=== PATIENT | male | born 1930 | race Caucasian/White ===

== ENCOUNTER → 2018-06-19 | Day surgery (SDC) | payer MEDICARE, OTHER ==
[2018-05-30 15:54] LABS: BASOPHILS % 0.6 % (0.0-1.0); EOSINOPHILS # (AUTO) 0.1 (0.0-0.4); EOSINOPHILS % 2.8 % (0.0-6.0); HEMATOCRIT 36.5 % (38.2-49.6); HEMOGLOBIN 11.9 g/dL (14.0-18.0); LYMPHOCYTES # (AUTO) 0.8 (1.0-3.2); LYMPHOCYTES % 16.1 % (18.0-39.1); MEAN CORPUSCULAR HEMOGLOBIN 30.9 pg (28-32); MEAN CORPUSCULAR HGB CONC 32.6 g/dL (31-35); MEAN CORPUSCULAR VOLUME 94.8 fL (81-99); MONOCYTES # (AUTO) 0.7 (0.2-0.8); MONOCYTES % 14.2 % (4.4-11.3); NEUTROPHILS # (AUTO) 3.1 (2.1-6.9); NEUTROPHILS % 66.1 % (38.7-80.0); PLATELET COUNT 209 x10e3/uL (140-360); RED BLOOD COUNT 3.85 x10e6/uL (4.3-5.7); RED CELL DISTRIBUTION WIDTH 15.5 % (11.7-14.4)
[2018-05-30 16:07] LABS: ANION GAP 14.7 mmol/L (8-16); CALCIUM 9.7 mg/dL (8.4-10.2); CREATININE, SERUM 1.19 mg/dL (0.72-1.25); POTASSIUM 4.7 mmol/L (3.5-5.1)
--- NOTE | 2018-05-30 16:19 | Diagnostic Imaging Report ---
PROCEDURE: X-RAY CHEST, TWO VIEWS COMPARISON: None. INDICATIONS: PREOP FOR FOOT FINDINGS: LUNGS: Diffusely hyperinflated without mass or infiltrate. No interstitial edema. PLEURA: No effusions or pneumothorax. 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 BONES \T\ SOFT TISSUES: No acute findings. There is dextroscoliosis of the thoracolumbar spine. No compression deformities. Median sternotomy wires are intact. CONCLUSION: 1. Pulmonary hyperinflation suggestive of COPD. 2. Cardiomegaly. No vascular congestion. Postoperative changes in the mediastinum as described above. Dictated by: Bryan Salinas M.D. on 05/30/2018 at 16:25 Electronically approved by: Bryan Salinas M.D. on 05/30/2018 at 16:25
[~2018-06-19] MED LIST: ALBUTEROL SULFAT4 MG INH; BROMFED DM COU118 ML PO; BUPIVACAINE HCL 0.5% INJ 30 ML VIAL INJ ONE; CEFAZOLIN SOD 1 GM VIAL ONE; CETIRIZINE HCL10 M1 PO; DEXAMETHASONE SOD PHOS INJ 4 MG/ML VIAL ONE; DIGOXIN125 MCG PO; ELIQUIS PO; FENTANYL CITRATE/PF 100MCG/2 ML INJ ONE; FLONASE; FUROSEMIDE40 MG PO; GABAPENTIN100 MG PO; LIDOCAINE HCL 2% LOCAL INJ 5 ML SDV VIAL INJ ONE; MIDAZOLAM HCL 2 MG/2 ML VIAL ONE; PROPOFOL IV EMULSION 10 MG/ML 20 ML VIAL ONE; SIMVASTATIN20 MG PO; TAMSULOSIN HCL0.4 MG; TRELEGY ELLIPTA; [UNRECOGNIZED DRUG - OTHER] PO
[2018-06-19 09:45] VITALS: BP 123/87
--- NOTE | 2018-06-25 08:17 | Operative Report ---
DATE OF PROCEDURE: June 19, 2018 PREOPERATIVE DIAGNOSES 1. Right hallux interphalangeus. 2. Right 2nd and 3rd digit hammertoe. POSTOPERATIVE DIAGNOSES 1. Right hallux interphalangeus. 2. Right 2nd and 3rd hammertoe. PLANNED PROCEDURES 1. Right hallux partial amputation. 2. Right 2nd and 3rd digit arthroplasty. SURGEON: Dr. Hawa DPM CHERRY PITTER: Jairo Horvath DPM ANESTHESIA: General with a postoperative block consisting of 15 mL of 0.5% Marcaine plain. ESTIMATED BLOOD LOSS: Less than 10 mL. PATHOLOGY: None. MATERIALS: Two 0.045 double-ended K-wires, 2-0 Vicryl, 3-0 Vicryl and 4-0 Prolene. PROCEDURE NOTE: Patient was seen in the preoperative waiting room where correct procedure and site was identified. The patient was brought to the operating room and placed on the operating table in the supine position. General anesthesia was initiated at this time. A well-padded pneumatic tourniquet was placed about the patient's right thigh. The right foot, ankle and leg was then scrubbed, prepped and draped in the usual aseptic manner. The right foot, ankle and leg was exsanguinated with an Esmarch bandage and right thigh tourniquet was inflated to 350 mmHg for a total time approximately 30 minutes. Attention was directed to the distal aspect of the patient's right foot where a severe hallux interphalangeus was noted. The decision was made to proceed with a partial amputation of the patient's right hallux. Two 3 cm converging semi-elliptical incisions were made at the level of the interphalangeal joint of the right hallux. The incision was carried down to the level of bone. The interphalangeal joint was identified and disarticulated, and passed off to the back table. Next, the wound edges were prepped for closure by removing all dog ears and debulking fat. The flaps were reapproximated utilizing simple interrupted sutures with 4-0 nylon. Attention was directed to the 1st metatarsophalangeal joint where a stab incision was made at the level of the extensor hallucis longus tendon, and the hallux was then plantar flexed to allow for a tenotomy at the level of the metatarsophalangeal joint. Next, attention was directed the 2nd proximal interphalangeal joint where a 1 cm linear incision was made directly over the joint. The incision was carried through the subcutaneous tissues them from deeper underlying structures. All vital neurovascular structures were identified and retracted medially and laterally, and all bleeders were cauterized or ligated as deemed necessary. Next, a tenotomy and capsulotomy was performed at the level of proximal interphalangeal joint. The head of the proximal phalanx was freed of all capsular and ligamentous attachments. The head of the proximal phalanx was resected and passed off to the back table. The base of the middle phalanx was also denuded of all articular cartilage. Next, a stab incision was made at the metatarsophalangeal joint to allow for a tenotomy and capsulotomy of the joint. Next, utilizing a 0.045 K-wire in a retrograde fashion, it was drilled distally through the middle and distal phalanx and proximal phalanx and into the metatarsal head. It was confirmed via intraoperative fluoroscopy. The same exact procedure was performed to the 3rd digit with no change in techniques, and the same excellent results were achieved. All the wounds were flushed with copious amounts of sterile saline. The incision sites were closed utilizing simple interrupted sutures with 4-0 nylon. The incision sites were then dressed with Adaptic, 4 x 4's, Kerlix, Lonnie wrap, and a postop shoe. The patient tolerated the procedure and anesthesia well. Patient was transferred to the postoperative recovery room with vital signs stable and vascular status intact. The patient was monitored there for a short period time before being sent home with follow written and instructions: 1. Keep the dressing clean, dry and tact. 2. The patient is to remain minimal partial weightbearing in a postop shoe and to avoid excessive ambulation until being seen in the office. 3. Patient was given the office number and instructed to contact us if any problems should arise. DICTATED BY JAIRO HORVATH DPM Job#: [id number] MOHAN
== END | disposition home or self-care (01) ==
LOC: OR 05:40
PROVIDERS: ATTEND Podiatrist Foot & Ankle Surgery
DX: M20.5X1 Other deformities of toe(s) (acquired), right foot (principal); M20.41 Other hammer toe(s) (acquired), right foot; I25.810 Atherosclerosis of coronary artery bypass graft(s) without angina pectoris; I48.91 Unspecified atrial fibrillation; J44.9 Chronic obstructive pulmonary disease, unspecified; Z88.6 Allergy status to analgesic agent; Z01.810 Encounter for preprocedural cardiovascular examination; Z01.812 Encounter for preprocedural laboratory examination; Z01.818 Encounter for other preprocedural examination; Z79.02 Long term (current) use of antithrombotics/antiplatelets; Z95.1 Presence of aortocoronary bypass graft; Z95.0 Presence of cardiac pacemaker; Z87.891 Personal history of nicotine dependence
CPT/HCPCS: 28285 ×2; 28825; 36415; 71046; 80048; 85025; 88305; 88311; 93005; J0690; J1100; J2001; J2250; 88304